=== PATIENT | female | born 1960 | race Caucasian/White ===

== ENCOUNTER 2017-01-28 17:01 | Inpatient (IN) | payer MEDICARE ==
--- NOTE | ~2017-01-28 | DS ---
Discharge Summary [facility] [address] [place]. [address] NAME: APRIL CHRISTOPHER : 56 STATUS : ADM IN [facility]#: [id number] AGE: 56 ADM/REG DATE : 01/28/17 MR#: [id number] REPORT SERV DATE: 01/31/17 DICTATED BY: RUTH ROLAND DATE: 01/31/17 REPORT STATUS : Draft TRANSCRIBED BY: MODL DATE: 01/31/17 ADMISSION DATE: 01/28/2017 DISCHARGE DATE: 01/31/2017 FINAL HOSPITAL DIAGNOSES: 1. Abdominal pain, probable pancreatitis. 2. History of ulcerative colitis, irritable bowel syndrome. 3. History of borderline diabetes. 4. History of hypothyroidism. 5. History of chronic pain in her back. 6. Depression and anxiety and panic attacks. CONSULTATIONS: None. PROCEDURES: 1. CT scan of the abdomen and pelvis done on 01/28/2017, showing no acute abdominal or pelvic pathology. No imaging explanation for the right-sided abdominal pain. Small fat-containing umbilical hernia. Minor subsegmental atelectasis or focal fibrosis along the right diaphragmatic crura at the right lung base, inferior lingular segment of lateral left lower lobe. 2. MRCP done on 01/30/2017 showing trace right pleural effusion, nonspecific. Pancreas and biliary system showed no evidence of pancreatitis, retained stone. Remainder of the exam also appears normal. 3. Ultrasound of the gallbladder done on 01/29/2017, showing common bile duct and liver normal, right kidney and aorta normal, pancreas attempted but not seen. CURRENT PHYSICAL FINDINGS AND HISTORY OF PRESENT ILLNESS: Please see dictated H and P by Dr. Paz. In brief, the patient is a 56-year-old female with above medical history, presented with complaint of abdominal pain that was different than her previous GI and back pain symptoms. Vital signs at the time of admission, BP was 130/81, 98.5 for the temp, pulse 93, sat 92%. LABORATORY DATA: Lab work showed initial BMP that was normal. Lipid panel showed a total cholesterol of 208 with a triglyceride of 105. LFTs and bilirubin and alkaline phosphatase were all normal. Initial lipase was 2985, and the following day, less than 12 hours later, was 572, subsequent were 524 and 234 on 01/30/2017 and 01/31/2017. Troponin and TSH were within normal range. Ionized calcium was 4.91. BNP was 44.6. CBC was normal. Subsequent hemoglobins were slightly low at 11.8 and 35.4 on the date of discharge. Urinalysis was unremarkable. HOSPITAL COURSE: The patient was admitted with abdominal pain and elevated lipase, and ultrasound was scheduled for the following morning. She was placed on prophylactic antibiotics until culture results could be obtained. Home medications were reviewed and continued as appropriate. She was started on Levaquin and Flagyl. I saw her the following day, her lipase was already markedly improving. Since her CT did not show acute pancreatitis, she was started on clear liquid diet, which she tolerated. The following day, Discharge Summary [address] [place]. [address] NAME: APRIL CHRISTOPHER : 56 STATUS : ADM IN [facility]#: [id number] AGE: 56 ADM/REG DATE : 01/28/17 MR#: [id number] REPORT SERV DATE: 01/31/17 DICTATED BY: RUTH ROLAND DATE: 01/31/17 REPORT STATUS : Draft TRANSCRIBED BY: AVANI DATE: 01/31/17 she thought the Flagyl may be making her nauseated. She had no fever, no elevated white count. Procalcitonin was checked and also noted to be normal. So, her Flagyl was discontinued. Because of the elevated lipase and a negative CT and ultrasound, MRCP was ordered, which was negative also. The patient's only other complaint was a headache, which was improved with Midrin. I saw her again on 01/31/2017. She had not had a bowel movement yet, but she stated that was not abnormal for her. She was tolerating p.o. Her abdominal symptoms had resolved. There was no other significant pathology noted on any of her tests. It was presumed that she had a transient pancreatitis, mild, which had spontaneously resolved. She was felt stable and discharged home. MEDICATIONS: Vitamin D 5000 two tablets daily, levothyroxine 50, magnesium oxide 250, MS Contin 30 b.i.d., hydrocodone 10/325 q.6, fish oil 1000, Paxil 30, Geritol, Klonopin 2 mg q.i.d., and Restoril 15. She is encouraged to follow with Dr. Wong pCliffr.n. if her symptoms return and she may certainly always return here for symptoms acutely worsen. She does seem to be under a great deal of psychosocial stressors and unfortunately none of them are that she is here to readily changeable at the current time. TLF/MODL Ruth Roland M.D. / [id number] CC: Cristiane Ramírez M.D.
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
[2017-01-28 17:43] LABS: BASOPHILS 0.6 %; BASOPHILS ABSOLUTE 0.04 10/3/uL (0.0-0.16); EOSINOPHILS 0.9 %; EOSINOPHILS ABSOLUTE 0.06 10/3/uL (0.0-0.53); ER CBC TAT 0 Hrs 08 Mins; HEMATOCRIT 41.1 % (36.0-48.0); HEMOGLOBIN 14.3 g/dL (12.0-16.0); IMMATURE GRANULOCYTES 0.2 %; IMMATURE GRANULOCYTES ABSOLUTE 0.01 10/3/uL (0.0-0.11); LYMPHOCYTES 36.9 %; LYMPHOCYTES ABSOLUTE 2.44 10/3/uL (0.67-4.30); MEAN CORPUS HGB CONC 34.8 g/dL (32.0-36.0); MEAN CORPUSCULAR VOLUME 86.2 fL (80-100); MEAN PLATELET VOLUME 10.1 fL (9.2-13.0); MONOCYTES 8.2 %; MONOCYTES ABSOLUTE 0.54 10/3/uL (0.21-1.20); NEUTROPHILS 53.2 %; NEUTROPHILS ABSOLUTE 3.53 10/3/uL (2.02-8.40); PLATELET COUNT 210 10/3/uL (150-400); RBC DISTRIBUTION WIDTH 13.5 % (12.0-16.0); RED CELL COUNT 4.77 10/6/uL (4.0-5.6); WHITE BLOOD CELLS 6.6 10/3/uL (4.5-10.5)
[2017-01-28 17:46] LABS: MANUAL DIFF NO %
[2017-01-28 17:49] LABS: ASCORBIC ACID (UR NOT ORDER) NEG (NEG); BILIRUBIN, URINE NEGATIVE (NEG); ER URINALYSIS TAT 0 Hrs 14 Mins; KETONE, URINE NEGATIVE (NEG); LEUKOCYTE ESTERASE(NOT OR NEG (NEG); NITRITE (URINE) NEG (NEG); WBC (NOT ORDERED) (RFLEX) 1 (0-5)
[2017-01-28 17:58] LABS: A/G RATIO 1.1 (0.7-1.9); ALBUMIN 4.1 G/DL (3.5-5.0); ALKALINE PHOSPHATASE 78 U/L (45-117); BUN (BLOOD UREA NITROGEN) 14 MG/DL (6-23); CALCIUM, SERUM 8.8 MG/DL (8.5-10.4); CHLORIDE, SERUM 107 MMOL/L (96-112); CO2 (CARBON DIOXIDE) 28 MMOL/L (24-34); CREATININE 0.88 MG/DL (0.55-1.02); GFR AFRICAN AMERICAN 84 ML/MIN (>=60); GFR NON AFRICAN AMERICAN 72 ML/MIN (>=60); GLOBULIN 3.8 G/DL (2.5-4.1); GLUCOSE, SERUM 104 MG/DL (60-99); POTASSIUM, SERUM 4.2 MMOL/L (3.5-5.3); SGOT(AST) 15 U/L (5-40); SGPT(ALT) 20 U/L (5-65); SODIUM, SERUM 142 MMOL/L (135-148); TOTAL BILIRUBIN 0.5 MG/DL (0-1.2); TOTAL PROTEIN 7.9 G/DL (6.0-8.5)
[2017-01-28] MEDS ORDERED: FISH-EPA1000 MG PO (21:38)
[2017-01-28] MEDS ORDERED: Vitamin D 5 (21:39)
[2017-01-28] MEDS ORDERED: GERITOL PO (21:39)
[2017-01-28] MEDS ORDERED: MAG OXIDE250 MG PO (21:40)
[2017-01-28] MEDS ORDERED: MSCONTIN PO (21:40)
[2017-01-28] MEDS ORDERED: KLONO2 PO (21:40)
[2017-01-28] MEDS ORDERED: LEVOTHYROXIN50 MCG PO (21:41)
[2017-01-28] MEDS ORDERED: PAXIL30 MG PO (21:41)
[2017-01-28] MEDS ORDERED: REST15 PO (21:41)
[2017-01-28] MEDS ORDERED: NORCO1 TAB PO (21:41)
[2017-01-29 05:29] LABS: BASOPHILS 0.4 %; BASOPHILS ABSOLUTE 0.03 10/3/uL (0.0-0.16); EOSINOPHILS 0.8 %; EOSINOPHILS ABSOLUTE 0.06 10/3/uL (0.0-0.53); HEMATOCRIT 38.4 % (36.0-48.0); HEMOGLOBIN 12.9 g/dL (12.0-16.0); IMMATURE GRANULOCYTES 0.1 %; IMMATURE GRANULOCYTES ABSOLUTE 0.01 10/3/uL (0.0-0.11); LYMPHOCYTES 17.7 %; LYMPHOCYTES ABSOLUTE 1.25 10/3/uL (0.67-4.30); MEAN CORPUS HGB CONC 33.6 g/dL (32.0-36.0); MEAN CORPUSCULAR HEMOGLOB 29.7 pg (26.0-34.0); MEAN CORPUSCULAR VOLUME 88.3 fL (80-100); MONOCYTES 6.2 %; MONOCYTES ABSOLUTE 0.44 10/3/uL (0.21-1.20); NEUTROPHILS 74.8 %; NEUTROPHILS ABSOLUTE 5.27 10/3/uL (2.02-8.40); PLATELET COUNT 167 10/3/uL (150-400); RBC DISTRIBUTION WIDTH 13.4 % (12.0-16.0); RED CELL COUNT 4.35 10/6/uL (4.0-5.6); WHITE BLOOD CELLS 7.1 10/3/uL (4.5-10.5)
[2017-01-29 05:30] LABS: MANUAL DIFF NO %
[2017-01-29 05:32] LABS: INTERNATIONAL NORMAL RATI 1.1 UNITS (-); PARTIAL THROMBO TIME 27.5 SEC (22.5-37.2); PROTIME (NOT ORD) 14.2 SEC (12.0-14.5)
[2017-01-29 05:52] LABS: A/G RATIO 1.1 (0.7-1.9); ALBUMIN 3.4 G/DL (3.5-5.0); BUN (BLOOD UREA NITROGEN) 14 MG/DL (6-23); CALCIUM, SERUM 8.1 MG/DL (8.5-10.4); CHLORIDE, SERUM 110 MMOL/L (96-112); CHOLESTEROL 208 MG/DL (< 200); CO2 (CARBON DIOXIDE) 28 MMOL/L (24-34); CREATININE 0.88 MG/DL (0.55-1.02); GFR AFRICAN AMERICAN 84 ML/MIN (>=60); GFR NON AFRICAN AMERICAN 72 ML/MIN (>=60); GLOBULIN 3.1 G/DL (2.5-4.1); SGOT(AST) 13 U/L (5-40); SGPT(ALT) 14 U/L (5-65); SODIUM, SERUM 145 MMOL/L (135-148); TOTAL BILIRUBIN 0.5 MG/DL (0-1.2); TOTAL PROTEIN 6.5 G/DL (6.0-8.5); TROPONIN I <0.02 NG/ML (<0.05)
[2017-01-29 05:53] LABS: ALKALINE PHOSPHATASE 65 U/L (45-117); CALCIUM IONIZED 4.91 MG/DL (3.80-4.80); CHOL/HDL RATIO(NOT ORDER) 4.2 (0-5); GLUCOSE, SERUM 129 MG/DL (60-99); HDL CHOLESTEROL 49 MG/DL (> 49); LDL CHOLESTEROL 138 MG/DL (< 130); NON-HDL CHOLESTEROL 159 MG/DL (< 160); TRIGLYCERIDE 105 MG/DL (< 150)
[2017-01-29 05:58] LABS: B NATRIURETIC PEPTIDE (BNP) 44.6 PG/ML (< 100.0)
[2017-01-30 05:54] LABS: A/G RATIO 1.1 (0.7-1.9); ALBUMIN 2.8 G/DL (3.5-5.0); CALCIUM, SERUM 7.8 MG/DL (8.5-10.4); CHLORIDE, SERUM 111 MMOL/L (96-112); CO2 (CARBON DIOXIDE) 29 MMOL/L (24-34); CREATININE 0.82 MG/DL (0.55-1.02); GFR AFRICAN AMERICAN 91 ML/MIN (>=60); GFR NON AFRICAN AMERICAN 79 ML/MIN (>=60); GLOBULIN 2.6 G/DL (2.5-4.1); POTASSIUM, SERUM 3.5 MMOL/L (3.5-5.3); SGOT(AST) 7 U/L (5-40); SGPT(ALT) 11 U/L (5-65); SODIUM, SERUM 147 MMOL/L (135-148); TOTAL BILIRUBIN 0.4 MG/DL (0-1.2); TOTAL PROTEIN 5.4 G/DL (6.0-8.5)
[2017-01-30 05:56] LABS: ALKALINE PHOSPHATASE 52 U/L (45-117); BUN (BLOOD UREA NITROGEN) 8 MG/DL (6-23); GLUCOSE, SERUM 97 MG/DL (60-99)
[2017-01-30 11:08] LABS: PROCALCITONIN <0.05 ng/mL (<0.5)
[2017-01-31 06:47] LABS: BASOPHILS 0.9 %; BASOPHILS ABSOLUTE 0.04 10/3/uL (0.0-0.16); EOSINOPHILS ABSOLUTE 0.18 10/3/uL (0.0-0.53); HEMATOCRIT 35.4 % (36.0-48.0); HEMOGLOBIN 11.8 g/dL (12.0-16.0); IMMATURE GRANULOCYTES 0.2 %; IMMATURE GRANULOCYTES ABSOLUTE 0.01 10/3/uL (0.0-0.11); LYMPHOCYTES ABSOLUTE 2.23 10/3/uL (0.67-4.30); MEAN CORPUS HGB CONC 33.3 g/dL (32.0-36.0); MEAN CORPUSCULAR HEMOGLOB 29.3 pg (26.0-34.0); MEAN CORPUSCULAR VOLUME 87.8 fL (80-100); MONOCYTES 8.4 %; MONOCYTES ABSOLUTE 0.38 10/3/uL (0.21-1.20); NEUTROPHILS 37.5 %; NEUTROPHILS ABSOLUTE 1.71 10/3/uL (2.02-8.40); PLATELET COUNT 158 10/3/uL (150-400); RBC DISTRIBUTION WIDTH 13.2 % (12.0-16.0); RED CELL COUNT 4.03 10/6/uL (4.0-5.6); WHITE BLOOD CELLS 4.6 10/3/uL (4.5-10.5)
[2017-01-31 06:48] LABS: MANUAL DIFF NO %
[2017-01-31 06:58] LABS: A/G RATIO 1.1 (0.7-1.9); ALBUMIN 3.1 G/DL (3.5-5.0); ALKALINE PHOSPHATASE 57 U/L (45-117); BUN (BLOOD UREA NITROGEN) 5 MG/DL (6-23); CHLORIDE, SERUM 108 MMOL/L (96-112); CO2 (CARBON DIOXIDE) 28 MMOL/L (24-34); CREATININE 0.81 MG/DL (0.55-1.02); GFR AFRICAN AMERICAN 93 ML/MIN (>=60); GFR NON AFRICAN AMERICAN 80 ML/MIN (>=60); GLOBULIN 2.9 G/DL (2.5-4.1); GLUCOSE, SERUM 96 MG/DL (60-99); POTASSIUM, SERUM 3.3 MMOL/L (3.5-5.3); SGOT(AST) 13 U/L (5-40); SGPT(ALT) 15 U/L (5-65); SODIUM, SERUM 144 MMOL/L (135-148)
[2017-01-31 07:01] LABS: TOTAL BILIRUBIN 1.3 MG/DL (0-1.2)
== END 2017-01-31 17:30 | disposition home or self-care (01) | DRG 440 ==
LOC: ER 17:01 → 4SO 21:43
PROVIDERS: Emergency Medicine; Hospitalist; Internal Medicine
DX: K85.90 Acute pancreatitis without necrosis or infection, unspecified (principal); G62.9 Polyneuropathy, unspecified; F32.9 Major depressive disorder, single episode, unspecified; E03.9 Hypothyroidism, unspecified; K58.9 Irritable bowel syndrome, unspecified; Z87.11 Personal history of peptic ulcer disease; F43.10 Post-traumatic stress disorder, unspecified; G89.29 Other chronic pain; M54.9 Dorsalgia, unspecified; R73.03 Prediabetes; F41.9 Anxiety disorder, unspecified; F41.0 Panic disorder [episodic paroxysmal anxiety]; R51 Headache
CPT/HCPCS: 74176; 74181; 76705; 80053; 80061; 81001; 82150; 82330; 83690; 83735; 83880; 84145; 84443; 84484; 85025; 85610; 85730; 96374; 99285; A9270-GY; J1170; J1956; J2405